=== PATIENT | male | born 1985 | race Two or more races ===

== ENCOUNTER 2016-10-12 00:32 | Emergency (ER) | payer SELFPAY ==
[~2016-10-12] VITALS: Ht 167.6 cm; Wt 68.0 kg
[2016-10-12 00:47] VITALS: BP 138/74
== END 2016-10-12 02:45 | disposition left against medical advice (07) ==
LOC: ER 00:33
DX: Z53.21 Procedure and treatment not carried out due to patient leaving prior to being seen by health care provider (principal)
CPT/HCPCS: A4606; Z7610